=== PATIENT | female | born 1935 | race Caucasian/White ===

== ENCOUNTER 2025-05-27 12:44 | Emergency (ER) | payer MEDICARE, BC ==
[~2025-05-27] VITALS: Ht 157.5 cm; Wt 60.0 kg
[2025-05-27 12:50] VITALS: BP 170/83; PULSE 98; RESP 16; TEMP 36.6; O2SAT 99
== END 2025-05-27 13:50 | disposition left against medical advice (07) ==
LOC: ER 12:44
DX: S00.03XA Contusion of scalp, initial encounter (principal); I10 Essential (primary) hypertension; Z96.659 Presence of unspecified artificial knee joint; E05.90 Thyrotoxicosis, unspecified without thyrotoxic crisis or storm; Z88.0 Allergy status to penicillin; W01.10XA Fall on same level from slipping, tripping and stumbling with subsequent striking against unspecified object, initial encounter; Y93.89 Activity, other specified; Y92.89 Other specified places as the place of occurrence of the external cause; Y99.8 Other external cause status
CPT/HCPCS: 99283